=== PATIENT | female | born 1945 | race African-American/Black ===

== ENCOUNTER 2018-07-03 14:05 | Observation (INO) | payer MEDICARE, OTHER ==
--- NOTE | 2018-07-03 16:02 | PDOC.FPRHP ---
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 While in [facility] she started feeling "off, " overheated and lightheaded like she was going to pass out. Pt reports symptoms were starting to resolve by the time she arrived at the hospital. She denied any chest pain, SOB, changes in weakness, numbness, changes in speech, facial droop. Pt reports feeling this way once before during jehovah's witness last winter but symptoms resolved much quicker and she was not evaluated at that time. Endorses nonproductive cough "off and on for quite awhile" but has worsened over the last couple days. Also endorses some exertional dyspnea. ED Course: 500ml bolus IVF - Home Medications Medication Instructions Recorded Confirmed Type Amlodipine [Norvasc] 10 mg PO QAM 07/03/18 07/03/18 History Clopidogrel Bisulfate [Plavix] 75 mg PO QAM 07/03/18 07/03/18 History Ferrous Sulfate 325 mg PO BID 07/03/18 07/03/18 History Lisinopril 40 mg PO QAM 07/03/18 07/03/18 History Simvastatin 20 g PO QAM 07/03/18 07/03/18 History - History PMHx: HLD, HTN, Stroke 2010, DMII PSHx: None FHx: Father- Diabetes Social: Former smoker- 48yrs. Drinks 1 shot of alcohol per night. Denies drug use uses cane and electric scooter to ambulate. Daughter lives with her - Review of Systems General: denies: fever/chills, weight/appetite/sleep changes, night sweats Eyes: reports: other (denies blurry vision). denies: vision changes ENT: denies: nasal congestion, rhinorrhea Respiratory: reports: cough, congestion, shortness of breath, exercise intolerance Cardiovascular: denies: chest pain, palpitation, edema Gastrointestinal: reports: nausea. denies: vomiting, diarrhea, constipation, abdominal pain Genitourinary: reports: other (denies hematuria). denies: dysuria Skin: denies: rashes, lesions Musculoskeletal: denies: pain, swelling Neurological: reports: weakness (no new weakness). denies: numbness - Vital signs BP: 128/69 HR: 91 RR: 20 Tmax: 98.6 Pox: 95% on RA Wt: 59.9kg - Physical Exam Constitutional: NAD, awake, alert and oriented, well developed HEENT: normocephalic and atraumatic, TM's clear and intact, normal nasal mucosa , oropharynx clear, other (wears dentures) Neck: supple, trachea midline Heart: RRR, pulses present, no edema Lungs: other (Audible wheezing) Abdomen: soft, non-tender, bowel sounds present Neurological: CN II-XII intact (CN 11 not intact on right), other (4/5 right hip flexion, 5/5 left. contracture of right arm. 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 5/5 left. 4/5 dorsiflexion/planter flexion on right. 5/5 on left. Speech fluent, nml Normal heel to sarkar bilaterally Normal finger nose with left arm, unable to assess with left due to weakness) Skin: capillary refill <2 seconds Psychiatric: normal mood and affect, good judgment and insight, intact recent and remote memory FMR H&P: Results - Radiology Interpretation CT scan - head Status: report reviewed by me Additional comment: Mild calcified stenosis involving proximal right internal carotid artery. Unremarkable brain CT Lacunar infarctions in right subinsular and left lentiform nucleus regions. Chest x-ray Status: report reviewed by me Additional comment: Interstitial prominence may due to chronic change vs superimposed infiltrate FMR H&P: A/P - Problem List (1) Orthostatic hypotension Current Visit: Yes Status: Acute Code(s): I95.1 - ORTHOSTATIC HYPOTENSION (2) History of CVA with residual deficit Current Visit: Yes Status: Acute Code(s): I69.30 - UNSPECIFIED SEQUELAE OF CEREBRAL INFARCTION (3) Bronchitis Current Visit: Yes Status: Acute Code(s): J40 - BRONCHITIS, NOT SPECIFIED ACUTE OR CHRONIC (4) Type 2 diabetes mellitus Current Visit: Yes Status: Acute (5) HTN (hypertension) Current Visit: Yes Status: Acute Code(s): I10 - ESSENTIAL (PRIMARY) HYPERTENSION (6) HLD (hyperlipidemia) Current Visit: Yes Status: Acute Code(s): E78.5 - HYPERLIPIDEMIA, UNSPECIFIED - Plan Presyncope, orthostatic hypotension - Admit to stroke - CT with no acute changes 05/02 - neurochecks q4hr - Positive Orthostatics after 500ml bolus - MRI not necessary at this time, if pt has changes or focal deficits overnight consider ordering MRI - s/p 500ml bolus at OSH - 1L LR @250ml/hr then LR @100ml/hr Acute bronchitis - Afebrile, wheezing on exam, cough, exertional dyspnea - Interstitial prominence may due to chronic change vs superimposed infiltrate - Consider lisinopril as cause of chronic nonproductive cough although worsening cough over last few days is likely 2/2 infectious cause - Azithromycin - Scheduled Duonebs - Prednisone 40mg PO x5days DMII - HgbA1c 5.2% 04/2018 - Mild SSI - Pt currently on prednisone, expect elevated blood glucose HTN - Continue home lisinopril 40mg, amlodipine 10mg - Consider as cause of chronic cough as above HLD - Continue home simvastatin 20mg Hx of CVA - Residual right sided weakness, uses cane and electric scooter to ambulate - Continue home ASA and Plavix Hx of anemia - Hgb 14.3 nml - Continue home ferrous sulfate DVT ppx: Lovenox Code Status: FULL FMR H&P: Upper Level - Pertinent history 72 y/o F w/ PMHx of CVA w/ residual R-sided deficits, HTN, T2DM, and HLD presents as a transfer from [facility] for suspected stroke. Pt reports that she was sitting down at [facility] earlier today when she started feeling nauseated, diaphoretic, and feeling confused and like she may pass out. Pt thinks that she got overheated. She notes that by standards fanned her off and her sxs resolved. She notes that by standards noted she was confused during this episode , but is able to remember all the events of this. She notes she has had similar episodes in the past w/ no work-up. She also reports cough that she has had on and off for a while now and notes she has been having some wheezing. She was given 500 mL of normal saline in [facility] per nursing staff, but unable to verify this in the EMR report. - Pertinent findings Vitals: BP 143/84 P 97 RR 22 O2Sat% 96% on RA Temp 98.3 DegF Labs: WBC: 5.6 PMNs: 41.3% Hgb 14.3 Trop-I <0.01 PE: GEN: NAD CARD: RRR, no mumur rubs or gallops RESP: Scattered wheezes, good overall air movement NEURO: Slight weakness R-UE and R-LE as compared to left, R-UE contracture noted , CN 2-12 intact b/l w/ exception of decreased shoulder shrug on R as compared to left CXR interstitial prominence chronic vs infiltrate CT Brain NAD CTA Head/Neck Mild Prox. R-ICA stenosis - Plan Date/Time: 07/03/18 1600 I, B. Steve Larios MD have evaluated this patient and agree with findings/plan as outlined by internal communications writer resident. Pertinent changes/additions are listed here. 72 y/o F w/: 1. Pre-Syncope likely 2/2 hypovolemia from #2 - Pt w/ hx of stroke w/ residual R-sided deficits. Will admit to stroke w/ q4 hour neuro checks to monitor for any change neurological status - Initial concern for stroke as cause of transient AMS upon ER presentation w/ negative CT brain and CTA-Head neck. Pt now back to baseline per pt and sister in room and sxs not consistent w/ CVA in etiology w/ no focal deficits - Will cont. w/ statin and ASA and plavix - Orthostatic obtained in the ER positive w/ Sitting to standing diastolic from 108 -> 88 and patient w/ symptomatic dizziness during this - Will give another 1000 mL slow bolus of LR over [address] on 100 mL/ Hr IVF w/ strict I/Os and repeat orthostatic vitals in the morning 2. Acute Bronchitis - Will give prednisone and azithromycin with PRN albuterol nebs - Likely cause of hypovolemia causing #1 3. HTN - Stable, cont. w/ home meds 4. HLD - Stable, cont. w/ home statin 5. T2DM - Recent A1c 5.2 from 04/[address] on AC/HS accuchecks while in the hospital getting oral steroids w/ mild SSI 6. Iron Def. Anemia - Stable w/ Hgb 14.3 and normal MCV - Cont. to monitor Dispo: Admit Stroke Obs. LOS likely <2 midnights pending clinical course CODE STATUS: FULL CODE Assessment and plan discussed w/ Dr. Marlon Buenrostro who is in agreement. Attending Addendum - Attending Addendum Date/Time: 07/03/18 [id number] I personally evaluated the patient and discussed the management with Dr. Ko /Harriet. I agree with the History, Examination, Assessment and Plan documented above with any addition or exceptions noted below.
[2018-07-03 16:45] LABS: Troponin I Less than 0.010 ng/mL (< 0.028)
[2018-07-03] MEDS ORDERED: Dextrose 5% in Water 1,000 ML IV PRN (18:03)
[2018-07-03] MEDS ORDERED: Dextrose 50% Abboject 50 ML SYRINGE SLOW IVP PRN (18:03)
[2018-07-03] MEDS ORDERED: HumaLOG 300 UNITS/3 ML VIAL SC PRN (18:03)
[2018-07-03] MEDS ORDERED: Ondansetron ODT 4 MG TAB PO PRN (18:03)
[2018-07-03] MEDS ORDERED: Azithromycin 250 MG TAB PO SCH (18:30)
[2018-07-03 18:31] VITALS: BMI 21.9
[2018-07-03] MEDS ORDERED: Atorvastatin Calcium 10 MG TAB PO SCH (21:00)
[2018-07-03] MEDS: Ferrous Sulfate 325 MG TAB PO SCH (21:04)
[2018-07-03] MEDS: Lactated Ringer's 1,000 ML IV SCH (21:04)
[2018-07-04 04:40] LABS: #Eosinphils 0.4 thou/uL (0.0-0.7); #Lymphocytes 1.9 thou/uL (1.20-3.40); #Monocytes 0.4 thou/uL (0.11-0.59); %Basophils 0.9 % (0.0-1.0); %Eosinophils 7.1 % (0.0-10.0); %Lymphocytes 32.6 % (21.0-51.0); %Monocytes 7.6 % (0.0-10.0); Hemoglobin 12.5 g/dL (12.0-16.0); Mean Corpuscular HGB CONC 34.1 g/dL (32.0-36.0); Mean Corpuscular Hemoglobin 31.7 pg (27.0-31.0); Mean Corpuscular Volume 92.7 fL (78.0-98.0); Mean Platelet Volume 6.5 fL (7.4-10.4); Platelet Count 294 thou/uL (130-400); RBC Distribution Width 12.1 % (11.5-14.5); Red Blood Cell (RBC) Count 3.96 mill/uL (4.20-5.40); White Blood Cell (WBC) Count 5.7 thou/uL (4.8-10.8)
[2018-07-04 04:52] LABS: Anion Gap 15 mmol/L (10-20); BUN (Urea Nitrogen) 9 mg/dL (9.8-20.1); Calc. Creatinine Clearance 65 mL/min (70-130); Calcium 9.8 mg/dL (7.8-10.44); Carbon Dioxide 23 mmol/L (23-31); Chloride 106 mmol/L (98-107); Cholesterol 196 mg/dl (< 200 Desired); Estimated GFR-MDRD 87; Glucose 93 mg/dL (80-115); HDL Cholesterol 49 mg/dL (>60 Neg Risk); LDL Cholesterol, Calculated 118 mg/dL; Potassium 3.8 mmol/L (3.5-5.1); Sodium 140 mmol/L (136-145); Triglycerides 143 mg/dL (Less than 150)
[2018-07-04] MEDS: Lactated Ringer's 1,000 ML IV SCH ×3 (05:58→09:19)
--- NOTE | 2018-07-04 06:27 | PDOC.FM ---
- Subjective Subjective: Patient reports feeling alright this AM. Denies any chest pain, SOB, or N/V/D. Endorses some persistent lightheadedness upon standing. Denies any wheezing but received her latest duoneb 20 minutes prior to exam. Endorses a smoking history of ~1ppd since age 17 but has never been diagnosed wtih COPD. Has had DMII for about 7 years. - Objective MAR Reviewed: Yes Vital Signs & Weight: Vital Signs (12 hours) Temp Pulse Resp BP Pulse Ox 07/04/18 04:00 98.8 F 80 16 131/81 97 07/03/18 23:54 98.8 F 84 16 115/76 97 07/03/18 20:00 98.8 F 94 16 124/71 95 07/03/18 18:22 66 18 95 Weight Weight 63.866 kg I&O: 07/02/18 07/03/18 07/04/18 06:59 06:59 06:59 Output Total 200 Balance -200 Result Diagrams: 07/04/18 03:58 07/04/18 03:58 Phys Exam - Physical Examination Constitutional: NAD HEENT: sclera anicteric Neck: supple, full ROM Respiratory: no wheezing, no rales, no rhonchi, clear to auscultation bilateral Cardiovascular: RRR, no significant murmur Gastrointestinal: no distention, positive bowel sounds Musculoskeletal: no edema Neurological: non-focal, moves all 4 limbs Psychiatric: normal affect, A&O x 3 Skin: no rash, normal turgor Dx/Plan (1) Orthostatic hypotension Code(s): I95.1 - ORTHOSTATIC HYPOTENSION Status: Acute (2) Bronchitis Code(s): J40 - BRONCHITIS, NOT SPECIFIED ACUTE OR CHRONIC Status: Acute (3) Type 2 diabetes mellitus Status: Chronic (4) HLD (hyperlipidemia) Code(s): E78.5 - HYPERLIPIDEMIA, UNSPECIFIED Status: Acute (5) HTN (hypertension) Code(s): I10 - ESSENTIAL (PRIMARY) HYPERTENSION Status: Acute (6) History of CVA with residual deficit Code(s): I69.30 - UNSPECIFIED SEQUELAE OF CEREBRAL INFARCTION Status: Acute - Plan Plan: Presyncope, orthostatic hypotension - s/p LR @100ml/hr overnight. Last several BPs have been 142/79. - Will give one more 500mL LR bolus to help alleviate orthostasis but could just be 2/2 autonomic dysregulation from DMII. Counseled on importance of sitting upright on edge of bed for 2 minute sbefore standing to reduce orthostatic symptoms. Also told patient to check BG at home if she ever feels lightheaded & diaphoretic as she did on Wednesday before presentation as those can be symptoms of hypoglycemia. Acute bronchitis - Afebrile overnight w/o wheezing on exam but was s/p duoneb 20 minutes before exam. - Interstitial prominence most likely 2/2 chronic changes vs. atelectasis as procal was 0.04. - Consider lisinopril as cause of chronic nonproductive cough as well. - Will consider stopping Azithromycin on discharge. - Will stop FARZAD Duonebs Q4H & change to PRN. - Will continue prednisone 40mg PO x 4days upon discharge. DMII - HgbA1c 5.2% in 04/2018 - Will continue Mild SSI - Pt currently on prednisone, but BG levels have been WNL. HTN - Will continue home lisinopril 40mg & amlodipine 10mg. - Consider as lisinopril as a cause of chronic cough as stated above & instruct patient to inform PAP of this upon discharge. HLD - Will start on atorvastatin 40mg QHS given h/o CVA. Hx of CVA - Residual right sided weakness, uses cane and electric scooter to ambulate. Continue routine fall precautions. - Continue home ASA, Plavix, & change statin to 40mg atorvastatin QHS. Hx of anemia - Hgb WNL on admission at 12.5 & - Continue home ferrous sulfate. DVT ppx: Lovenox Code Status: FULL
[2018-07-04] MEDS ORDERED: Azithromycin 250 MG TAB PO SCH (09:00)
[2018-07-04] MEDS ORDERED: Aspirin 81 mg Enteric Coated Tablet PO SCH (09:00)
[2018-07-04] MEDS ORDERED: Amlodipine 10 MG TAB PO SCH (09:00)
[2018-07-04] MEDS ORDERED: predniSONE 20 MG TAB PO SCH (09:00)
[2018-07-04] MEDS ORDERED: Lisinopril 20 MG TAB PO SCH (09:00)
[2018-07-04] MEDS ORDERED: Enoxaparin Sodium 40 MG/0.4 ML SYRINGE SC SCH (09:00)
[2018-07-04] MEDS ORDERED: Clopidogrel Bisulfate 75 MG TAB PO SCH (09:00)
[2018-07-04] MEDS ORDERED: Atorvastatin Calcium 10 MG TAB PO SCH (09:21)
[2018-07-04] MEDS: Ferrous Sulfate 325 MG TAB PO SCH (09:23)
[2018-07-04] MEDS ORDERED: Lactated Ringer's 500 ML IV SCH (09:30)
[2018-07-04 12:24] VITALS: TEMP 97.9
--- NOTE | 2018-07-04 12:41 | HP ---
ADDENDUM: Please add this as an addendum to the note of Dr. Joanne Robison. Ms. Horton looks and feels much better after several normal saline boluses. She still demonstrates sl ight orthostasis, but this may be a reflection of some autonomic dysfunction related to her long-term type 2 diabetes. In the event, she looks and feels much better. Her troponins have all been less than 0.01. Her electrolytes are normal. Glucose is 121. She will likely be ready for discharge later this afternoon.
--- NOTE | 2018-07-04 15:23 | DIS-2 ---
DATE OF ADMISSION: 07/03/2018 DATE OF DISCHARGE: 07/04/2018 RESIDENT: Joanne Robison MD ADMITTING ATTENDING: Marlon Buenrostro MD DISCHARGE ATTENDING: Joao Casiano MD CONSULTS: None. PROCEDURES: 1. Chest x-ray, significant for interstitial prominence, chronic change versus superimposed infiltrate. 2. CT head, significant for no acute changes. PRIMARY DIAGNOSES: 1. Orthostatic hypotension, secondary to suspected hypovolemia versus autonomic instability from type 2 diabetes mellitus. 2. Bronchitis. 3. Suspected COPD exacerbation. SECONDARY DIAGNOSES: 1. Type 2 diabetes, diet controlled. 2. Hypertension. 3. Hyperlipidemia. 4. History of cerebrovascular accident with right-sided residual deficits. DISCHARGE MEDICATIONS: 1. Aspirin 81 mg p.o. daily. 2. Atorvastatin 40 mg p.o. at bedtime. 3. Zithromax 250 mg p.o. daily for 4 days. 4. Prednisone 40 mg p.o. q.a.m. for 4 days. 5. Norvasc 10 mg p.o. q.a.m. 6. Plavix 75 mg p.o. q.a.m. 7. Ferrous sulfate 325 mg p.o. b.i.d. 8. Lisinopril 40 mg p.o. q.a.m. 9. Albuterol sulfate HFA or Proventil HFA 2 puffs inhaled every 4 hours p.r.n. DISCONTINUED MEDICATIONS: Simvastatin 20 mg p.o. q.a.m. HISTORY OF PRESENT ILLNESS AND HOSPITAL COURSE: The patient is a 72-year-old -[place] female with past medical history significant for type 2 diabetes, hypertension, hyperlipidemia, and history of a CVA in 2010 with right- sided residual weakness, who presented to the emergency department in [place] with a chief complaint of confusion, lightheadedness, and nausea. She said it began while she was sitting in congregational. Patient reports she felt off, overheated , and like she was going to pass out. She also reported a dry cough that has been ongoing for the last several months. Upon presentation to our emergency department, the patient received a 500 mL bolus of IV fluids, and given her history of a prior CVA, a CT of the head was obtained, which was negative for any acute changes. A chest x-ray was also obtained, which was significant for an interstitial prominence, thought to be chronic changes versus superimposed infiltrate. The patient's vitals were all within normal limits; however, orthostats were positive in the emergency department. An EKG and cardiac enzymes were also obtained. EKG was significant for normal sinus rhythm and her cardiac enzymes were negative x1 and not trended any further. Due to a suspected bronchitis or pulmonary infection, a procalcitonin was also ordered, and given the patient's CVA history, she was admitted to the stroke unit for observation overnight. Her regular home meds were resumed as well as p.o. prednisone and azithromycin with scheduled DuoNeb every 4 hours, as the patient was noted to be wheezing on physical exam. Upon arriving to the floor, the patient was started on maintenance IV fluids with LR at 100 mL/hr. By the following morning, the patient did endorse some residual orthostatic symptoms upon standing, but denied any syncope or falls. She was therefore given an additional 500 mL bolus of LR and observed for the remainder of the morning for improvement of her symptoms. The patient was counseled regarding the importance of adequate p.o. hydration and told that this could, in fact, be secondary to autonomic dysregulation from her diabetes mellitus. She was instructed to sit on the edge of the bed for approximately 2 minutes before attempting to stand to decrease her orthostatic symptoms. In addition, on the morning of discharge, the patient's wheezing had significantly improved, so DuoNeb treatments were changed to p.r.n. rather than scheduled. Procalcitonin was negative at 0.04 suggesting this was likely not an active infection; however , treatment for presumed COPD exacerbation was continued upon discharge. Thus, after being counseled on the reasons for her orthostatic symptoms and advised to also check her blood glucose should these symptoms recur, the patient was cleared for discharge home and instructed to follow up with her primary care provider within 1 week of discharge. DISPOSITION: Stable. DISCHARGE INSTRUCTIONS: 1. Location: Home. 2. Diet: Diabetes diet. 3. Activity: Activity as tolerated. No restrictions. 4. Followup. The patient was discharged to follow up with her primary care provider, Dr. Linsey Garcia within 1 week of discharge and encouraged to suggest the possibility that her MIRELLA inhibitor medication, lisinopril, could be contributing to a chronic cough that the patient reported. ЮЛИЯ
[2018-07-04 16:24] VITALS: BP 142/81
[2018-07-04] MEDS ORDERED: Atorvastatin Calcium 40 MG TAB PO SCH (21:00)
--- NOTE | 2018-07-09 13:38 | EKG ---
Test Reason : Blood Pressure : / mmHG Vent. Rate : 095 BPM Atrial Rate : 095 BPM P-R Int : 164 ms QRS Dur : 074 ms QT Int : 352 ms P-R-T Axes : 076 061 060 degrees QTc Int : 442 ms Normal sinus rhythm Normal ECG Confirmed by HOLLY REYES, DAVID ([id number]), film editor supervisor RADHA LLANES ([id number]) on 07/09/2018 1:37:52 PM Referred By: Confirmed By:DAVID BARRERA MD
== END 2018-07-04 14:31 | disposition home or self-care (01) ==
LOC: ERS 14:05 → 2SE 17:57
PROVIDERS: ADMIT Student in an Organized Health Care Education/Training Program; ATTEND Student in an Organized Health Care Education/Training Program
DX: I95.1 Orthostatic hypotension (principal); E11.9 Type 2 diabetes mellitus without complications; J40 Bronchitis, not specified as acute or chronic; I10 Essential (primary) hypertension; E78.5 Hyperlipidemia, unspecified; Z86.73 Personal history of transient ischemic attack (TIA), and cerebral infarction without residual deficits; Z79.82 Long term (current) use of aspirin; Z79.899 Other long term (current) drug therapy
CPT/HCPCS: 80048; 80061; 82962; 84145; 84484; 85025; 93005; 94640 ×2; 96360; 96361 ×2; 96372; 99285; G0378 ×2; 36415; 36416; J1650; J7506; J7620